=== PATIENT | male | born 1970 | race Caucasian/White ===

== ENCOUNTER → 2019-03-28 | Outpatient (CLI) | payer OTHER ==
[~2019-03-28] MED LIST: AMIT25; BUSP10 PO; CIPR500 PO; CLON1 PO; CYCL10 PO; ESCI10; FROV2.5 PO; HYDACE5; HYDACE5 PO; HYDMOR2 PO; HYDMOR4 PO; IBUP600 PO; IBUP800 PO; INDERAL; KETO10 PO; NAPR220; NAPR500 PO; OXYACE10; OXYACE5T PO; OXYC5; OXYCONTIN; PENVK500 PO; PHENY100ER PO; PROM25 PO; RXOXYACE PO; SUMA25; TAMS.4ER PO; THORAZINE; TRAM50 PO; TRAZ50; [UNRECOGNIZED DRUG - OTHER]; [UNRECOGNIZED DRUG - REMARK]
== END ==
LOC: LAB SHORT 14:23 → LAB EV 14:23
DX: L08.9 Local infection of the skin and subcutaneous tissue, unspecified (principal)
CPT/HCPCS: 87070; 87075; 87077; 87147; 87186; 87205

== ENCOUNTER → 2019-05-09 | Outpatient (CLI) | payer OTHER ==
[2019-05-09 14:36] LABS: Alanine Aminotransfer (ALT/SGP 41 U/L (12-78); Albumin, Blood 3.7 g/dL (3.4-5.0); Albumin/Globulin Ratio 1.1 (0.8-1.8); Alk Phos 106 U/L (40-126); Anion Gap 12 mmol/L (6-16); Aspartate Aminotrans (AST/SGOT 71 U/L (12-37); Bilirubin, Total 0.3 mg/dL (0.1-1.0); Blood Urea Nitrogen 11 mg/dL (8-24); Bun/Creatinine Ratio 8.7 (12.0-20.0); CO2, Blood 23 mmol/L (21-32); Calcium, Blood 8.9 mg/dL (8.5-10.1); Chloride, Blood 107 mmol/L (98-108); Creatinine, Blood 1.26 mg/dL (0.60-1.20); Globulin, Blood 3.3 g/dL (2.2-4.0); Glomerular Filtration Rate >60 (60-); Glucose, Blood 102 mg/dL (70-99); Potassium, Blood 3.9 mmol/L (3.5-5.5); Sodium, Blood 142 mmol/L (136-145); Thyroid Stimulating Hormone 1.402 uIU/mL (0.360-4.800)
== END | disposition home or self-care (01) ==
LOC: LAB SHORT 14:13 → LAB EV 14:13
PROVIDERS: Physician Assistant
DX: E03.9 Hypothyroidism, unspecified (principal)
CPT/HCPCS: 80053; 84443

== ENCOUNTER 2020-01-06 06:01 | Emergency (ER) | payer OTHER ==
[~2020-01-06] VITALS: Ht 172.7 cm; Wt 88.5 kg
[2020-01-06] MEDS ORDERED: NEURONTIN300 MG PO (06:29)
[2020-01-06] MEDS ORDERED: MIRT15 PO (06:29)
[2020-01-06] MEDS ORDERED: Buspirone HCl10 MG PO (06:29)
[2020-01-06] MEDS ORDERED: MIRT30 PO (06:30)
[2020-01-06] MEDS ORDERED: HYDROCODONE-AC1 EAC7 PO (06:30)
[2020-01-06] MEDS ORDERED: ATOR20 PO (06:31)
[2020-01-06] MEDS ORDERED: QUETIAPINE FUM200 M2 PO (06:31)
[2020-01-06] MEDS ORDERED: SYNTHROID100 MC3 PO (06:31)
[2020-01-06] MEDS ORDERED: METOPROLOL SUCC25 MG PO (06:32)
[2020-01-06 06:36] LABS: BASOPHILS ABSOLUTE AUTO 0.12 K/mm3 (0.00-0.23); BASOPHILS PERCENT AUTO 1 % (0-2); EOSINOPHILS ABSOLUTE AUTO 0.36 K/mm3 (0.00-0.68); EOSINOPHILS PERCENT AUTO 2 % (0-6); Hematocrit 38.1 % (37.0-53.0); Hemoglobin 12.4 g/dL (13.5-17.5); IMMATURE GRAN ABSOLUTE AUTO 0.07 K/mm3 (0.00-0.10); IMMATURE GRAN PERCENT AUTO 1 % (0-1); LYMPHOCYTES ABSOLUTE AUTO 2.35 K/mm3 (0.84-5.20); LYMPHOCYTES PERCENT AUTO 16 % (21-46); MONOCYTES ABSOLUTE AUTO 1.57 K/mm3 (0.16-1.47); MONOCYTES PERCENT AUTO 11 % (4-13); Mean Corpuscular HGB 30.3 pg (26.0-34.0); Mean Corpuscular HGB Conc 32.5 g/dL (31.5-36.5); Mean Corpuscular Volume 93 fL (80-100); NEUTROPHILS ABSOLUTE AUTO 10.27 K/mm3 (1.96-9.15); NEUTROPHILS PERCENT AUTO 70 % (41-73); Platelet Count 353 K/mm3 (150-400); RDW Coefficient Variation 14.2 % (11.7-14.2); RDW Standard Deviation 48.3 fL (35.1-46.3); Red Blood Cell Count 4.09 M/mm3 (4.30-5.90); White Blood Cell Count 14.74 K/mm3 (4.00-11.30)
[2020-01-06 06:54] LABS: Alanine Aminotransfer (ALT/SGP 33 U/L (12-78); Albumin, Blood 3.5 g/dL (3.4-5.0); Alk Phos 90 U/L (50-136); Anion Gap 6 mmol/L (6-16); Aspartate Aminotrans (AST/SGOT 27 U/L (12-37); Bilirubin, Total 0.2 mg/dL (0.1-1.0); Blood Urea Nitrogen 8 mg/dL (8-24); Bun/Creatinine Ratio 8.3 (12.0-20.0); CO2, Blood 24 mmol/L (21-32); Calcium, Blood 9.5 mg/dL (8.5-10.1); Chloride, Blood 108 mmol/L (98-108); Creatinine, Blood 0.96 mg/dL (0.60-1.20); Globulin, Blood 3.6 g/dL (2.2-4.0); Glomerular Filtration Rate >60 (60-); Glucose, Blood 117 mg/dL (70-99); Potassium, Blood 4.1 mmol/L (3.5-5.5); Sodium, Blood 138 mmol/L (136-145); Total Protein, Blood 7.1 g/dL (6.4-8.2); Troponin I <0.015 ng/mL (0.000-0.040)
[2020-01-06] MEDS ORDERED: AMOCLA875 PO (09:29)
== END 2020-01-06 09:52 | disposition home or self-care (01) ==
LOC: ER 06:01
PROVIDERS: Emergency Medicine
DX: K52.9 Noninfective gastroenteritis and colitis, unspecified (principal); J18.9 Pneumonia, unspecified organism; F41.9 Anxiety disorder, unspecified; F17.210 Nicotine dependence, cigarettes, uncomplicated; Z88.0 Allergy status to penicillin; Z88.5 Allergy status to narcotic agent; Z79.899 Other long term (current) drug therapy
CPT/HCPCS: 36415; 71046; 74177; 80053; 83690; 83880; 84484; 85025; 93005; 93010; 96374; 99285-25; J2405; Q9967

== ENCOUNTER → 2020-01-20 | Outpatient (CLI) | payer OTHER ==
[~2020-01-20] MED LIST changes: +AMOCLA875 PO; +ATOR20 PO; +Buspirone HCl10 MG PO; +HYDROCODONE-AC1 EAC7 PO; +METOPROLOL SUCC25 MG PO; +MIRT15 PO; +MIRT30 PO; +NEURONTIN300 MG PO; +QUETIAPINE FUM200 M2 PO; +SYNTHROID100 MC3 PO
[2020-01-20 10:03] LABS: BASOPHILS ABSOLUTE AUTO 0.11 K/mm3 (0.00-0.23); BASOPHILS PERCENT AUTO 1 % (0-2); EOSINOPHILS ABSOLUTE AUTO 0.26 K/mm3 (0.00-0.68); EOSINOPHILS PERCENT AUTO 3 % (0-6); Hematocrit 36.3 % (37.0-53.0); Hemoglobin 12.2 g/dL (13.5-17.5); IMMATURE GRAN ABSOLUTE AUTO 0.04 K/mm3 (0.00-0.10); IMMATURE GRAN PERCENT AUTO 0 % (0-1); LYMPHOCYTES ABSOLUTE AUTO 2.35 K/mm3 (0.84-5.20); LYMPHOCYTES PERCENT AUTO 23 % (21-46); MONOCYTES ABSOLUTE AUTO 0.85 K/mm3 (0.16-1.47); MONOCYTES PERCENT AUTO 8 % (4-13); Mean Corpuscular HGB 30.5 pg (26.0-34.0); Mean Corpuscular HGB Conc 33.6 g/dL (31.5-36.5); Mean Corpuscular Volume 91 fL (80-100); Mean Platelet Volume 10.5 fL (9.1-12.4); NEUTROPHILS ABSOLUTE AUTO 6.64 K/mm3 (1.96-9.15); NEUTROPHILS PERCENT AUTO 65 % (41-73); Platelet Count 379 K/mm3 (150-400); RDW Coefficient Variation 14.5 % (11.7-14.2); RDW Standard Deviation 48.2 fL (35.1-46.3); White Blood Cell Count 10.25 K/mm3 (4.00-11.30)
[2020-01-20 10:04] LABS: Anion Gap 9 mmol/L (6-16); Blood Urea Nitrogen 17 mg/dL (8-24); Bun/Creatinine Ratio 16.8 (12.0-20.0); CO2, Blood 25 mmol/L (21-32); Calcium, Blood 9.4 mg/dL (8.5-10.1); Chloride, Blood 104 mmol/L (98-108); Creatinine, Blood 1.01 mg/dL (0.60-1.20); Glomerular Filtration Rate >60 (60-); Glucose, Blood 103 mg/dL (70-99); Potassium, Blood 4.2 mmol/L (3.5-5.5); Sodium, Blood 138 mmol/L (136-145)
== END | disposition home or self-care (01) ==
LOC: LAB SHORT 09:54 → LAB EV 09:54
PROVIDERS: Family Medicine
DX: R07.9 Chest pain, unspecified (principal)
CPT/HCPCS: 80048; 84484; 85025; 85379

== ENCOUNTER 2020-03-06 03:40 | Emergency (ER) | payer OTHER ==
[~2020-03-06] VITALS: Ht 172.7 cm; Wt 97.5 kg
== END 2020-03-06 05:27 | disposition home or self-care (01) ==
LOC: ER 03:40
DX: M54.5 Low back pain (principal); G89.29 Other chronic pain; F41.9 Anxiety disorder, unspecified; F17.210 Nicotine dependence, cigarettes, uncomplicated; Z79.899 Other long term (current) drug therapy; Z87.442 Personal history of urinary calculi; Z88.0 Allergy status to penicillin; Z88.5 Allergy status to narcotic agent
CPT/HCPCS: 96372; 99283-25; J1885

== ENCOUNTER 2020-04-20 23:29 | Emergency (ER) | payer OTHER ==
[~2020-04-20] VITALS: Ht 175.3 cm; Wt 113.4 kg
[~2020-04-20 23:29] MED LIST changes: -Buspirone HCl10 MG PO
[2020-04-21] MEDS ORDERED: QUET200 PO (00:06)
[2020-04-21] MEDS ORDERED: TRAM50 PO (00:07)
[2020-04-21] MEDS ORDERED: Vitamin D2000 UNIT PO (00:07)
[2020-04-21] MEDS ORDERED: B-121000 MC7 PO (00:08)
== END 2020-04-21 01:50 | disposition home or self-care (01) ==
LOC: ER 23:29
DX: R06.02 Shortness of breath (principal); F17.210 Nicotine dependence, cigarettes, uncomplicated; Z88.0 Allergy status to penicillin; Z87.442 Personal history of urinary calculi; Z79.899 Other long term (current) drug therapy
CPT/HCPCS: 36415; 71046; 93005; 93010; 99285-25; A9270

== ENCOUNTER → 2020-07-19 | Outpatient (CLI) | payer OTHER ==
[~2020-07-19] MED LIST changes: +B-121000 MC7 PO; +QUET200 PO; +Vitamin D2000 UNIT PO
[2020-07-19 16:08] LABS: CHOL/HDL RATIO 4.3; Cholesterol 194 mg/dL (50-200); HDL Cholesterol 45 mg/dL (>39); LDL/HDL RATIO 2.4; Low Density Lipoprotein Chol 110 mg/dL (<110); Triglycerides 196 mg/dL (30-160); Very Low Density Lipoprot Chol 39 mg/dL (6-32)
[2020-07-20 07:10] LABS: HIV SCREEN 4TH GENERATION WRFX Non Reactive (Non Reactive)
== END | disposition home or self-care (01) ==
LOC: LAB SHORT 15:53
PROVIDERS: Family Medicine
DX: Z20.9 Contact with and (suspected) exposure to unspecified communicable disease (principal); Z77.21 Contact with and (suspected) exposure to potentially hazardous body fluids; G40.909 Epilepsy, unspecified, not intractable, without status epilepticus; E78.5 Hyperlipidemia, unspecified
CPT/HCPCS: 80061; 80177; 86803; 87389

== ENCOUNTER 2020-07-31 03:14 | Inpatient (IN) | payer OTHER ==
[~2020-07-31] VITALS: Ht 167.6 cm; Wt 102.1 kg
[2020-07-31 03:30] LABS: Calcium, Ionized (POC) 1.26 mmol/L (1.10-1.46); Chloride (POC) 102 mmol/L (98-108); Creatinine (POC) 0.9 mg/dL (0.8-1.3); Glucose (ISTAT POC) 135 mg/dL (70-99); Hemoglobin (POC) 11.9 g/dL (13.5-17.5); Potassium (POC) 3.8 mmol/L (3.5-5.5); Sodium (POC) 138 mmol/L (135-148); Total CO2 (POC) 23 mmol/L (21-32)
[2020-07-31 03:32] LABS: BASOPHILS ABSOLUTE AUTO 0.05 K/mm3 (0.00-0.23); BASOPHILS PERCENT AUTO 0 % (0-2); Hematocrit 35.3 % (37.0-53.0); Hemoglobin 11.3 g/dL (13.5-17.5); LYMPHOCYTES ABSOLUTE AUTO 1.02 K/mm3 (0.84-5.20); LYMPHOCYTES PERCENT AUTO 9 % (21-46); MONOCYTES ABSOLUTE AUTO 1.02 K/mm3 (0.16-1.47); MONOCYTES PERCENT AUTO 9 % (4-13); Mean Corpuscular HGB 29.9 pg (26.0-34.0); Mean Corpuscular Volume 93 fL (80-100); Mean Platelet Volume 10.6 fL (9.1-12.4); Platelet Count 250 K/mm3 (150-400); RDW Coefficient Variation 14.7 % (11.7-14.2); RDW Standard Deviation 50.4 fL (35.1-46.3); Red Blood Cell Count 3.78 M/mm3 (4.30-5.90)
[2020-07-31 03:34] LABS: EOSINOPHILS ABSOLUTE AUTO 0.12 K/mm3 (0.00-0.68); EOSINOPHILS PERCENT AUTO 1 % (0-6); IMMATURE GRAN ABSOLUTE AUTO 0.03 K/mm3 (0.00-0.10); IMMATURE GRAN PERCENT AUTO 0 % (0-1); NEUTROPHILS ABSOLUTE AUTO 9.56 K/mm3 (1.96-9.15); NEUTROPHILS PERCENT AUTO 81 % (41-73)
[2020-07-31 03:37] LABS: PCO2 Arterial 38.6 mmHg (35-45); PO2 Arterial 86.5 mmHg (80-100); pH Blood Arterial 7.39 (7.35-7.45)
[2020-07-31 03:57] LABS: Alanine Aminotransfer (ALT/SGP 24 U/L (12-78); Albumin, Blood 3.3 g/dL (3.4-5.0); Albumin/Globulin Ratio 0.9 (0.8-1.8); Alk Phos 61 U/L (50-136); Anion Gap 7 mmol/L (6-16); Aspartate Aminotrans (AST/SGOT 14 U/L (12-37); Bilirubin, Total 0.3 mg/dL (0.1-1.0); Blood Urea Nitrogen 16 mg/dL (8-24); Bun/Creatinine Ratio 17.2 (12.0-20.0); CO2, Blood 24 mmol/L (21-32); Calcium, Blood 8.9 mg/dL (8.5-10.1); Chloride, Blood 107 mmol/L (98-108); Creatinine, Blood 0.93 mg/dL (0.60-1.20); Ethanol (Alcohol), Blood, Med <3 mg/dL; Globulin, Blood 3.8 g/dL (2.2-4.0); Glomerular Filtration Rate >60 (60-); Glucose, Blood 132 mg/dL (70-99); Potassium, Blood 3.7 mmol/L (3.5-5.5); Sodium, Blood 138 mmol/L (136-145); Total Protein, Blood 7.1 g/dL (6.4-8.2); Troponin I <0.015 ng/mL (0.000-0.040)
[2020-07-31 04:10] LABS: U Amphetamine Screen Not Detected; U Barbituate Screen Not Detected; U Benzodiazapine Screen Not Detected; U Buprenorphine Screen Not Detected; U Cannabinoids Screen Not Detected; U Cocaine Screen Not Detected; U Methadone Screen Not Detected; U Methamphetamine Screen Not Detected; U Opiates Screen Not Detected; U Oxycodone Screen Not Detected; U Phencyclidine Screen Not Detected; U Propoxyphene Screen Not Detected
--- NOTE | 2020-07-31 06:32 | NUR ---
ADMISSION PATIENT ARRIVED TO UNIT AT 0623 VIA GURNEY FROM ED. 4 PERSON TRANSFER TO BED. PATIENT AWAKENS TO PHYSICAL AND VERBAL STIMULI. DOES NOT ANSWER QUESTIONS, QUICKLY CLOSES EYES WHEN NO DISTURBANCES PRESENT. 10L NON-REBREATHER IN PLACE WITH SATS 100%, PLACED 5L NC WITH SATS AT 93%. VITALS STABLE, SINUS RHYTHM NOTED. UNABLE TO ASK ADMISSION QUESTIONS AT THIS TIME DUE TO PATIENT'S LETHARGY. WILL REPORT TO ONCOMING RN.
--- NOTE | 2020-07-31 09:26 | NUR ---
AM NOTE... ASSUMED CARE OF PT AT 0700. PT WAKES TO VERBAL STIMULI AND IS A&Ox2 ABLE TO STATE HIS NAME AND THAT HE IS IN [place] BUT CONFUSED TO WHERE HE IS AT AND WHY HE IS HERE. PT IS IN [place], PT HAS TRACE EDEMA TO HIS BLE. L/S COARSE CRACKLES HEARD IN THE UPPER LOBES DIM IN THE LOWER LOBES, PT IS ON 5L NC WITH O2 SATS >90%. BT PRESENT AND HYPOACTIVE, ABD IS SLIGHTLY FIRM BUT NONTENDER TO PALP. PT'S BP IS ON THE SOFT SIDE BUT MAPS HAVE BEEN >65. CALL LIGHT IN REACH, BED ALARM IS ON WILL CONTINUE TO MONITOR.
[2020-07-31] MEDS ORDERED: Norco 5-325 Ta1 EACH PO (11:58)
[2020-07-31] MEDS ORDERED: ATOR40TA PO (12:00)
[2020-07-31] MEDS ORDERED: LEVE500 PO (12:13)
--- NOTE | 2020-07-31 13:16 | NUR ---
PT UPDATE... PT HAD REQUESTED TO GET UP TO THE BS TO HAVE A BM, PT DID WELL STANDING AND TRANSFERING TO THE BSC, NO DIZZINESS AND PT WAS STABLE ON HIS FEET, HE DID BECOME MORE SHORT OF BREATH WITH ACTIVITY. PT WAS TOLD NOT TO GET UP WITHOUT ASSISTANCE FROM STAFF D/T THE IV LINES, CORDS ETC. PT VERBALIZED HIS UNDERSTANDING BUT SOON THE CURTAIN WAS CLOSED AND HE TOUGHT STAFF WERE NOT LOOKING HE GOT UP, WENT TO HIS PANTS THAT WERE IN A CHAIR ACROSS THE ROOM, SOON THIS RN SAW THE PT WAS STANDING UP WITHOUT HELP I WENT INTO THE ROOM, I ENTERED THE ROOM THE PT PULLED 3 SMALL OBLONG WHITE PILLS OUT OF HIS POCKET, THREW THEM IN HIS MOUTH AND STARTED TO CHEW THEM UP. THIS RN ASKED WHAT THE PT HAD JUST TAKEN AND HE SAID "TYLENOL." THIS RN EDUCATED THE PT ON THE IMPORTANCE OF NOT TAKING ANY PERSONAL MEDICATIONS, POSSIBLE MEDICATION INTERACTIONS THAT COULD CAUSE MANY SIDE EFFECTS INCLUDING . PT VERBALIZED HIS UNDERSTANDING BUT THEN SAID "I TAKE PAIN PILLS AT HOME, NORCO AND TRAMADOL." THIS RN ASKED IF THAT IS WHAT HE HAD IN HIS POCKET AND HE PAUSED AND SAID "NO I JUST CHEW MY TYLENOL." PT THEN STARTED TO BECOME ANXIOUS AND STARTED TALKING ABOUT LEAVING AMA. THIS RN EDUCATED THE PT ON HIS RIGHT TO LEAVE BUT THAT HE CURRENTLY WAS NEEDING 2-4L OF OXYGEN TO KEEP HIS O2 SATS >89%, AND THAT HE BECOMES SOB WITH ACTIVITY, AND THAT HE WOULD NOT GET THE ANTIBIOTICS NEEDED FOR HIS CURRENT PNEUMONIA. PT VERBALIZED HIS UNDERSTANDING. PT WENT TO CT SCAN WITH IMAGING STAFF AND RETURNED A FEW MINS LATER, ATE 100% OF HIS LUNCH AND FELL ASLEEP. WILL CONTINUE TO MONITOR.
[2020-07-31] MEDS ORDERED: SYMBICORT 160-4.6 GM INH (14:24)
--- NOTE | 2020-07-31 16:37 | NUR ---
SHIFT SUMMARY... NO ACUTE NEGATIVE CHANGES NOTED THIS SHIFT. PT'S VS HAVE BEEN STABLE. PT HAS BEEN TITRATED FROM 5L NC DOWN TO RA-2L NC TO KEEP HIS O2 SATS>90%. PT'S MOTHER HAS BEEN AT THE BEDSIDE FOR VISITING HOURS. SHE HAS BEEN UPDATED ON PT'S PLAN OF CARE AND CONDITION. PT IS TO TRANSFER TO THE MEDICAL FLOOR, ALL OF PT'S BELONGINGS HAVE BEEN PACKED AND SENT WITH THE PT. REPORT CALLED TO CHRISSY HOFFMANN. WILL CONTINUE TO MONITOR UNTIL THE PT IS TRANSFERED TO MEDICAL FLOOR.
--- NOTE | 2020-07-31 18:09 | NUR ---
Pt arrived to room 336. Agree with previous pickling grader. Pt on 2L O2 via NC. Appears comfortable at this time. Call light within patient reach.
[2020-08-01 05:25] LABS: BASOPHILS ABSOLUTE AUTO 0.04 K/mm3 (0.00-0.23); BASOPHILS PERCENT AUTO 1 % (0-2); EOSINOPHILS ABSOLUTE AUTO 0.34 K/mm3 (0.00-0.68); EOSINOPHILS PERCENT AUTO 5 % (0-6); Hematocrit 33.4 % (37.0-53.0); Hemoglobin 10.6 g/dL (13.5-17.5); IMMATURE GRAN ABSOLUTE AUTO 0.03 K/mm3 (0.00-0.10); IMMATURE GRAN PERCENT AUTO 0 % (0-1); LYMPHOCYTES ABSOLUTE AUTO 1.95 K/mm3 (0.84-5.20); LYMPHOCYTES PERCENT AUTO 28 % (21-46); MONOCYTES ABSOLUTE AUTO 0.71 K/mm3 (0.16-1.47); MONOCYTES PERCENT AUTO 10 % (4-13); Mean Corpuscular HGB 29.9 pg (26.0-34.0); Mean Corpuscular HGB Conc 31.7 g/dL (31.5-36.5); Mean Corpuscular Volume 94 fL (80-100); Mean Platelet Volume 10.8 fL (9.1-12.4); NEUTROPHILS PERCENT AUTO 55 % (41-73); Platelet Count 250 K/mm3 (150-400); RDW Coefficient Variation 14.7 % (11.7-14.2); RDW Standard Deviation 51.6 fL (35.1-46.3); Red Blood Cell Count 3.55 M/mm3 (4.30-5.90); White Blood Cell Count 6.87 K/mm3 (4.00-11.30)
[2020-08-01 05:45] LABS: Alanine Aminotransfer (ALT/SGP 21 U/L (12-78); Albumin, Blood 2.9 g/dL (3.4-5.0); Albumin/Globulin Ratio 0.8 (0.8-1.8); Alk Phos 58 U/L (50-136); Anion Gap 4 mmol/L (6-16); Aspartate Aminotrans (AST/SGOT 11 U/L (12-37); Bilirubin, Total 0.3 mg/dL (0.1-1.0); Blood Urea Nitrogen 13 mg/dL (8-24); Bun/Creatinine Ratio 14.3 (12.0-20.0); CO2, Blood 27 mmol/L (21-32); Calcium, Blood 8.7 mg/dL (8.5-10.1); Chloride, Blood 112 mmol/L (98-108); Creatinine, Blood 0.91 mg/dL (0.60-1.20); Globulin, Blood 3.8 g/dL (2.2-4.0); Glomerular Filtration Rate >60 (60-); Glucose, Blood 103 mg/dL (70-99); Magnesium, Blood 2.5 mg/dL (1.6-2.4); Phosphorus, Blood 2.9 mg/dL (2.5-4.9); Potassium, Blood 4.1 mmol/L (3.5-5.5); Sodium, Blood 143 mmol/L (136-145); Total Protein, Blood 6.7 g/dL (6.4-8.2)
--- NOTE | 2020-08-01 05:52 | NUR ---
SHIFT SUMMARY- PT. HAD A RESTFUL NIGHT. ASLEEP MOST OF THE NIGHT, NO APPARENT DISTRESS NOTED. A&OX4, SBA/INDEP IN ROOM. MEDICATED THIS AM FOR COMPLAINTS OF LOWER BACK PAIN WITH GOOD EFFECT. PT. ON RA T/O THE NIGHT, PULMONOLOGY CONSULT IN PLACE. VSS. CALL LIGHT WITHIN REACH AND SIDE RAILS UPX2. WILL CONT TO MONITOR.
[2020-08-01] MEDS ORDERED: VISBIOME 112.51 EACH PO (09:38)
[2020-08-01] MEDS ORDERED: ALBU90OI INH (09:38)
[2020-08-01] MEDS ORDERED: NICO21TP TOP (09:38)
[2020-08-01] MEDS ORDERED: CEFP200 PO (09:39)
[2020-08-01] MEDS ORDERED: AZIT500 PO (09:39)
[2020-08-01] MEDS ORDERED: Prednisone10 MG PO (09:41)
--- NOTE | 2020-08-01 11:07 | NUR ---
DISCHARGE DISCAHRGE MEDICATIONS AND INSTRUCTIONS EXPLAINED TO PATIENT. PATIENT STATED UNDERSTANDING. [facility] TO CONTACT PATIENT WITH FOLLOW UP APPOINTMENT. IV'S REMOVED WITHOUT ISSUE. BELONGINGS WITH PATIENT. PATIENT TRANSFERED TO PRIVATE VEHICLE VIA WHEELCHAIR.
--- NOTE | 2020-08-01 13:35 | NUR ---
Pt. is doing much better and is discharged for good , wished pt. all the best while at home.
--- NOTE | 2020-08-01 17:06 | NUR ---
CARE COORDINATION REFERRAL - ADMIT: 07/31/20 DISCHARGE: 08/01/20 DX: ACUTE RESP. FAILURE WITH HYPOXIA CC: KWILCOX ADRIAN CALL: UNABLE TO MEET WITH PT BEFORE D/C RESIDENCE: HOME CAREGIVER:VIDA VASQUES, PARENT, DX: CKD-STAGE 2, HTN, CHRONIC PAIN SYNDROME, SEVERE MAJOR DEPRESSION WITH PSYCHOTIC FEATURES. GERD, SEE LIST DME: BLOOD PRESSURE MONITOR KIT CCM: NONE HOME HEALTH: NONE SUMMARY: ADMIT: 07/31/20 08/01/20- PER CHART REVIEW WITH DR. DEJESUS, PT WAS BROUGHT IN BY EMS AND TEMP 103. PT WAS NOT RESPONDING APPROPRIATELY. PT HAS NEW DIAGNOSIS OF PULMONARY NODULE. HE HAS ALTERED MENTAL STATUS AND HIS COVID TEST NEGATIVE. PT WAS DISCHARGED HOME TODAY. -YISSEL
== END 2020-08-01 10:55 | disposition home or self-care (01) | DRG 193 ==
LOC: ER 03:14 → MEDS 05:41 → ICUW 05:41 → MEDS 17:24
PROVIDERS: Emergency Medicine; Hospitalist; ADMIT Family Medicine
DX: J18.9 Pneumonia, unspecified organism (principal); A41.9 Sepsis, unspecified organism; J96.01 Acute respiratory failure with hypoxia; G93.41 Metabolic encephalopathy; R65.20 Severe sepsis without septic shock; Z20.822 Contact with and (suspected) exposure to COVID-19; G40.909 Epilepsy, unspecified, not intractable, without status epilepticus; E78.5 Hyperlipidemia, unspecified; J43.9 Emphysema, unspecified; F17.210 Nicotine dependence, cigarettes, uncomplicated; G89.4 Chronic pain syndrome; F41.9 Anxiety disorder, unspecified; Z88.0 Allergy status to penicillin; Z87.442 Personal history of urinary calculi; Z79.899 Other long term (current) drug therapy
CPT/HCPCS: 36415; 36600; 51701; 70450; 71045; 71260; 80047; 80053; 80177; 82140; 82803; 83605; 83735; 83880; 84100; 84145; 84484; 85014; 85025; 87040; 87070; 87205; 93005; 93010; 94640; 94760; 96365-59; 96368; 96375-59; 99285-25; A9270; A9270-GY; G0480; J0456; J0696; J1650; J1953; J2060; J2405; J7030; J7050; J7120; Q9967

== ENCOUNTER 2020-08-21 04:20 | Emergency (ER) | payer OTHER ==
[~2020-08-21] VITALS: Ht 172.7 cm; Wt 99.8 kg
[~2020-08-21 04:20] MED LIST changes: +ALBU90OI INH; +ATOR40TA PO; +AZIT500 PO; +CEFP200 PO; +LEVE500 PO; +NICO21TP TOP; +Norco 5-325 Ta1 EACH PO; +Prednisone10 MG PO; +SYMBICORT 160-4.6 GM INH; +VISBIOME 112.51 EACH PO
[2020-08-21 05:47] LABS: BASOPHILS ABSOLUTE AUTO 0.09 K/mm3 (0.00-0.23); BASOPHILS PERCENT AUTO 1 % (0-2); EOSINOPHILS PERCENT AUTO 2 % (0-6); Hematocrit 40.3 % (37.0-53.0); Hemoglobin 12.9 g/dL (13.5-17.5); IMMATURE GRAN ABSOLUTE AUTO 0.06 K/mm3 (0.00-0.10); IMMATURE GRAN PERCENT AUTO 0 % (0-1); LYMPHOCYTES ABSOLUTE AUTO 2.69 K/mm3 (0.84-5.20); LYMPHOCYTES PERCENT AUTO 19 % (21-46); MONOCYTES ABSOLUTE AUTO 1.52 K/mm3 (0.16-1.47); MONOCYTES PERCENT AUTO 11 % (4-13); Mean Corpuscular HGB 30.1 pg (26.0-34.0); Mean Corpuscular Volume 94 fL (80-100); NEUTROPHILS ABSOLUTE AUTO 9.74 K/mm3 (1.96-9.15); NEUTROPHILS PERCENT AUTO 68 % (41-73); Platelet Count 330 K/mm3 (150-400); RDW Coefficient Variation 15.3 % (11.7-14.2); RDW Standard Deviation 53.1 fL (35.1-46.3); Red Blood Cell Count 4.28 M/mm3 (4.30-5.90)
[2020-08-21 05:59] LABS: Alanine Aminotransfer (ALT/SGP 23 U/L (12-78); Albumin, Blood 3.5 g/dL (3.4-5.0); Albumin/Globulin Ratio 0.9 (0.8-1.8); Alk Phos 74 U/L (50-136); Anion Gap 7 mmol/L (6-16); Aspartate Aminotrans (AST/SGOT 16 U/L (12-37); Bilirubin, Total 0.2 mg/dL (0.1-1.0); Blood Urea Nitrogen 17 mg/dL (8-24); Bun/Creatinine Ratio 18.8 (12.0-20.0); CO2, Blood 23 mmol/L (21-32); Chloride, Blood 111 mmol/L (98-108); Creatinine, Blood 0.91 mg/dL (0.60-1.20); Globulin, Blood 3.7 g/dL (2.2-4.0); Glomerular Filtration Rate >60 (60-); Glucose, Blood 75 mg/dL (70-99); Potassium, Blood 4.7 mmol/L (3.5-5.5); Sodium, Blood 141 mmol/L (136-145); Total Protein, Blood 7.2 g/dL (6.4-8.2); Troponin I <0.015 ng/mL (0.000-0.040)
[2020-08-21] MEDS ORDERED: PRED20 PO (08:58)
== END 2020-08-21 09:13 | disposition home or self-care (01) ==
LOC: ER 04:20
PROVIDERS: Emergency Medicine
DX: J43.9 Emphysema, unspecified (principal); Z79.51 Long term (current) use of inhaled steroids; Z79.52 Long term (current) use of systemic steroids; Z79.899 Other long term (current) drug therapy
CPT/HCPCS: 36415; 71045; 71260; 80053; 83605; 83880; 84484; 85025; 93005; 93010; 99285-25; Q9967

== ENCOUNTER → 2020-09-04 | Outpatient (CLI) | payer OTHER ==
[~2020-09-04] MED LIST changes: +PRED20 PO; +Prednisone20 MG PO; +Zithromax250 MG PO
[2020-09-05 08:09] LABS: HIV SCREEN 4TH GENERATION WRFX Non Reactive (Non Reactive)
== END ==
LOC: LAB EV 13:51 → LAB SHORT 13:51
PROVIDERS: Family Medicine
DX: Z20.9 Contact with and (suspected) exposure to unspecified communicable disease (principal)
CPT/HCPCS: 87389

== ENCOUNTER 2020-09-05 02:31 | Inpatient (IN) | payer OTHER ==
[~2020-09-05] VITALS: Ht 172.7 cm; Wt 99.2 kg
[~2020-09-05 02:31] MED LIST changes: -Prednisone20 MG PO; -Zithromax250 MG PO
[2020-09-05 02:57] LABS: BASOPHILS ABSOLUTE AUTO 0.05 K/mm3 (0.00-0.23); BASOPHILS PERCENT AUTO 1 % (0-2); EOSINOPHILS PERCENT AUTO 2 % (0-6); Hematocrit 45.2 % (37.0-53.0); Hemoglobin 14.8 g/dL (13.5-17.5); IMMATURE GRAN ABSOLUTE AUTO 0.03 K/mm3 (0.00-0.10); IMMATURE GRAN PERCENT AUTO 0 % (0-1); LYMPHOCYTES ABSOLUTE AUTO 2.16 K/mm3 (0.84-5.20); LYMPHOCYTES PERCENT AUTO 21 % (21-46); MONOCYTES ABSOLUTE AUTO 0.34 K/mm3 (0.16-1.47); MONOCYTES PERCENT AUTO 3 % (4-13); Mean Corpuscular HGB Conc 32.7 g/dL (31.5-36.5); Mean Corpuscular Volume 92 fL (80-100); Mean Platelet Volume 9.6 fL (9.1-12.4); NEUTROPHILS ABSOLUTE AUTO 7.32 K/mm3 (1.96-9.15); NEUTROPHILS PERCENT AUTO 72 % (41-73); Platelet Count 432 K/mm3 (150-400); RDW Standard Deviation 50.4 fL (35.1-46.3); Red Blood Cell Count 4.93 M/mm3 (4.30-5.90)
[2020-09-05 03:18] LABS: Alanine Aminotransfer (ALT/SGP 26 U/L (12-78); Alk Phos 89 U/L (50-136); Anion Gap 2 mmol/L (6-16); Aspartate Aminotrans (AST/SGOT 20 U/L (12-37); Bilirubin, Total 0.1 mg/dL (0.1-1.0); Blood Urea Nitrogen 15 mg/dL (8-24); CO2, Blood 29 mmol/L (21-32); Calcium, Blood 9.1 mg/dL (8.5-10.1); Chloride, Blood 106 mmol/L (98-108); Creatinine, Blood 1.07 mg/dL (0.60-1.20); Glomerular Filtration Rate >60 (60-); Glucose, Blood 116 mg/dL (70-99); Potassium, Blood 3.9 mmol/L (3.5-5.5); Sodium, Blood 137 mmol/L (136-145); Troponin I <0.015 ng/mL (0.000-0.040)
--- NOTE | 2020-09-05 05:55 | NUR ---
ADMISSION: PT ARRIVES AN ADMIT FROM THE ED. REPORTS WORSENING SOB LAST NIGHT, WHEN ABOUT TO LEAVE FOR WORK @ [employer], HE BEGAN TO FEEL LIGHTHEADED & WAS UNABLE TO STAND. HE HAD x3 EPISODES OF EMESIS & HIS DAUGHTER DROVE HIM TO THE ER. UPON ARRIVAL, HR 150s, TACHYPNEIC & HYPOXIC. HE RECEIVED A NEB, ATIVAN, & PLACED ON BiPAP. HE IMPROVED SOMEWHAT PER ER REPORT. UPON ARRIVAL PT IS VERY DROWSY, DIFFICULTY SPEAKING W/ SLURRED & GARBLED SPEECH. CONFUSED. UNABLE TO PARTICIPATE IN ASSESSMENTS. THERE IS EMESIS IN HIS NOSE, MOUTH, & ON HIS HANDS. PT IS TOLERATING BiPAP VERY WELL, 14/8 FiO2 50% & SPO2 >95%. PT APPEARS DIAPHORETIC. SKIN PINK, HOT, MOIST. AFEBRILE.
--- NOTE | 2020-09-05 06:15 | NUR ---
UPDATE: PT's DAUGHTER CALLED FROM ICU LOUNGE TO PT ROOM TO ASSIST IN HEALTH Hx. SHE EXPLAINS HER FATHER HAS HAD COPD FOR SOME TIME, HOWEVER HE HAS NEVER BEEN THIS ILL. OVER THE PAST 5 MONTHS, HIS COPD HAS WORSENED SIGNIFICANTLY. HE HAS BEEN SEEN IN THE ER SEVERAL TIMES & ADMITTED TO THE HOSPITAL WHERE HE QUICKLY LEFT AMA. INTERACTIONS APPROPRIATE AND AMICABLE. DAUGHTER WAS LEAVING, PT BECAME VERY AGITATED, PULLING OFF VS EQUIPMENT & PULLING @ BiPAP. STATING IF HIS DAUGHTER WAS NOT ALLOWED TO STAY AT ALL TIMES, HE WAS GOING HOME. VISITING HOUR PARAMETERS EXPLAINED TO BOTH PARTIES, INCLUDING THE OPTION & RISKS vs BENEFITS OF OF LEAVING AMA DAUGHTER WILL STAY FOR NOW TO KEEP THE PT CALM, HOWEVER FURTHER PLAN OF CARE WILL BE DISCUSSED W/ DAY TIME RN & PROVIDER.
--- NOTE | 2020-09-05 08:00 | NUR ---
CARE ASSUMED PT IN BED WITH HOB ELEVATED, BIPAP IN PLACE, 25/11, FIO2 40%, SPO2 >95%, RR 25, COLOR IS ASHEN DESPITE ADEQUATE OXEGENATION. HR 100-110 SIT, BP STABLE. PT SLEEPING, NOT WOKEN AT THIS TIME PT HAS BEEN AWAKE AND AGITATED T/O NIGHT. WILL CONTINUE TO MONITOR.
--- NOTE | 2020-09-05 10:41 | NUR ---
UPDATE PT WOKE, ASSESSMENTS COMPLETED. BIPAP REMOVED FOR BREAK, PT ON OXYMIZER 10L WITH SPO2 96%, LOOSE COUGH NOTED, PT REPORTS BROWN SPUTUM PRODUCTION. LS DIMINISHED WITH EXPIRATORY WHEEZES ON L, RR 20'S, SKIN SALLOW. HR 90'S-110 SINUS, BP STABLE, NO EDEMA NOTED, PPP. PT GIVEN ZOFRAN FOR MILD NAUSEA, TOLERATED MEDICATIONS WELL, GIVEN BREAKFAST. AFTER PT FINISHED BREAKFAST, HE REQUESTED BIPAP BE REPLACED FOR SOB, DENIES NAUSEA AT THIS TIME. PT DIAPHORETIC, STATES HE IS HOT. BIPAP PLACED AT PREVIOUS SETTINGS, FAN GIVEN. HR 105, SPO2 REMAINS HIGH 90'S.
--- NOTE | 2020-09-05 14:59 | NUR ---
TRANSFER PCU RM [address] DR[address] FRANCISCO IN FOR CONSULT, ECHO ORDERED. PT HAS BEEN SLEEPING ON AND OFF TODAY, VS REMAIN STABLE. PT WOKE UP FOR LUNCH, BIPAP OFF, PUT ONOXYMIZER 4L, TOLERATED WELL, NO C/O NAUSEA AND NO DESATURATIONS, WHEN PT FINISHED HE ASKED TO STAY ON OXYMIZER. PT THEN FELL ASLEEP, DESATURATED TO MID 80'S, LS WHEEZY. BIPAP PLACED WITH PREVIOUS SETTINGS, SPO2 RECOVERED TO MID 90'S. DAUGHTER ARRIVED FOR VISITING HOURS, DR. FRANCISCO AT BEDSIDE TO GIVE UPDATE. REPORT GIVEN TO PCU NURSE, PT TO PCU 1 VIA BED WITH STAFF ASSIST, BELONGINGS AND CHART SENT WITH PATIENT.
--- NOTE | 2020-09-05 15:06 | NUR ---
CARE COORDINATION REFERRAL - ADMIT: 09/05/20 DISCHARGE: DX: ACUTE RESPIRATORY FAILURE CC: KWILCOX ADRIAN CALL: RESIDENCE: HOME CAREGIVER:VIDA VASQUES, PARENT, DX: CKD-STAGE 2, HTN, GERD, TRAUMATIC BRAIN INJURY, SEE LIST DME: BLOOD PRESSURE KIT CCM: NONE HOME HEALTH: NONE SUMMARY: 09/05/20 09/05/20- PER CHART REVIEW WITH DR. CHERRY, PT LIVES WITH HIS DAUGHTER AND WORKS IN [place]. PT WILL NEED O2 FOR HOME USE AT DISCHARGE. NO PLAN FOR D/C AT THIS TIME. -YISSEL
[2020-09-05 15:38] LABS: Source, Urine Clean Catch
[2020-09-05 15:44] LABS: Appearance, Urine Clear (Clear); Bilirubin, Urine Neg (Neg); Blood, Urine 3+ (Neg); Color, Urine Yellow (P-Yellow); Glucose Qualitative, Urine Neg (Neg); Ketones, Urine 1+ (Neg); Leukocyte Esterase, Urine Neg (Neg); Nitrite, Urine Neg (Neg); Protein, Urine 1+ (Neg); Urobilinogen, Urine NORM (Normal)
[2020-09-05 16:03] LABS: Bacteria Few /hpf; Squamous Epithelial Cells Few /hpf (Few); White Blood Cells, Urine 0-2 /hpf (0-5)
--- NOTE | 2020-09-05 18:02 | NUR ---
PATIENT ARRIVED FROM ICU ON 5 L VIA NASAL CANNULA. PATIENT APPEARS IRRITABLE, STATES THAT HE HAS TO GO TO THE BATHROOM, HE DOES NOT WANT TO USE THE URINAL, STATES HE IS "GOING TO THE GROWN UP BATHROOM OR I'M LEAVING." PATIENT AGREES TO ECHO AT BEDSIDE, ECHO COMPLETE. PATIENT PLACED BACK ON BIPAP BY MARYA HOFFMANN BECAUSE HE STATES HE FEELS HE IS NOT GETTING ENOUGH AIR. PATIENT CALLS THIS RN INTO ROOM, STATES HE IS NOT GETTING HIS MEDS HE SHOULD BE GETTING, INSISTS THAT HE NEEDS TRAMADOL D/T HIS 8/10 BACK AND NECK PAIN. PATIENT STATES HE IS LEAVING AND STARTED TO PULL OUT ONE OF HIS IVs. THIS RN STATED THAT THE DOCTOR WOULD BE CALLED TO DISCUSS BETTER PAIN MANAGEMENT IF THE PATIENT AGREED TO WAIT. DR. CHERRY NOTIFIED, DR. CHERRY AND INFORMED OF PATIENT'S DESIRE TO LEAVE AMA AND PATIENT'S DESIRE FOR IMPROVED PAIN CONTROL. DR. CHERRY GAVE ORDERS FOR INCREASING NORCO FROM DAILY TO Q6. THIS RN PROVIDED THIS INFORMATION TO PATIENT WHO AGREED TO STAY. THIS RN RETURNED TO ROOM WITH NORCO, PATIENT ASKED IF IT WAS A NORCO 5, THIS RN CONFIRMED THAT IT WAS. PATIENT STATED HE WAS "DONE AND LEAVING." PATIENT PROCEEDED TO REMOVE ONE IV. THIS RN DISCUSSED WITH PATIENT THAT HE HAS HIGH OXYGEN NEEDS AT THIS TIME, THIS RN DISCUSSED THE RISK OF LEAVING AND EXPERIENCING HYPOXIA, SEIZURE, AND POSSIBLE A RESULT OF STOPPING MEDICAL TREATMENT BY LEAVING AGAINST MEDICAL ADVICE. PATIENT VERBALIZED THAT HE "DIDN'T CARE" AND SIGNED AMA PAPERWORK. THIS RN REMOVED REMAINING IV. THIS RN ESCORTED PATIENT WITH PATIENT'S DAUGHTER TO THE EXIT, DAUGHTER TO PROVIDE RIDE VIA PERSONAL VEHICLE.
[2020-09-06 08:11] LABS: HBSAG SCREEN Negative (Negative); HEP B CORE AB, TOT Negative (Negative); HEP C VIRUS AB <0.1 (0.0-0.9)
== END 2020-09-05 18:15 | disposition left against medical advice (07) | DRG 871 ==
LOC: ER 02:31 → ICUE 04:06 → PCU 04:06 → ICUE 05:02 → PCU 14:53
PROVIDERS: Emergency Medicine; Internal Medicine; ADMIT Internal Medicine
PROC: 5A09357 Assistance with Respiratory Ventilation, Less than 24 Consecutive Hours, Continuous Positive Airway Pressure (ICD-10-PCS; principal; 2020-09-05)
DX: A41.9 Sepsis, unspecified organism (principal); J18.9 Pneumonia, unspecified organism; J96.02 Acute respiratory failure with hypercapnia; J96.01 Acute respiratory failure with hypoxia; R65.20 Severe sepsis without septic shock; G40.909 Epilepsy, unspecified, not intractable, without status epilepticus; J43.9 Emphysema, unspecified; I10 Essential (primary) hypertension; Z91.14 Patient's other noncompliance with medication regimen; E03.9 Hypothyroidism, unspecified; Z87.442 Personal history of urinary calculi; Z88.0 Allergy status to penicillin; Z79.899 Other long term (current) drug therapy; F17.210 Nicotine dependence, cigarettes, uncomplicated; I51.7 Cardiomegaly; F41.8 Other specified anxiety disorders; G89.29 Other chronic pain; M54.9 Dorsalgia, unspecified
CPT/HCPCS: 36415; 71045; 80053; 80177; 81001; 82947; 83605; 83880; 84443; 84484; 85025; 86317; 86704; 86708; 86803; 87040; 87070; 87077; 87147; 87186; 87205; 87340; 87389; 93005; 93010; 93306; 94640; 94644; 94660; 96365; 96375; 99285-25; A9270; J0692; J1650; J2060; J2405; J2930

== ENCOUNTER 2020-09-18 02:00 | Emergency (ER) | payer OTHER ==
[~2020-09-18] VITALS: Ht 172.7 cm; Wt 102.1 kg
[2020-09-18 04:24] LABS: BASOPHILS ABSOLUTE AUTO 0.04 K/mm3 (0.00-0.23); BASOPHILS PERCENT AUTO 0 % (0-2); EOSINOPHILS PERCENT AUTO 0 % (0-6); Hematocrit 36.5 % (37.0-53.0); Hemoglobin 11.9 g/dL (13.5-17.5); IMMATURE GRAN ABSOLUTE AUTO 0.18 K/mm3 (0.00-0.10); IMMATURE GRAN PERCENT AUTO 1 % (0-1); LYMPHOCYTES PERCENT AUTO 8 % (21-46); MONOCYTES ABSOLUTE AUTO 1.31 K/mm3 (0.16-1.47); MONOCYTES PERCENT AUTO 7 % (4-13); Mean Corpuscular HGB 29.5 pg (26.0-34.0); Mean Corpuscular HGB Conc 32.6 g/dL (31.5-36.5); Mean Corpuscular Volume 91 fL (80-100); Mean Platelet Volume 9.3 fL (9.1-12.4); NEUTROPHILS ABSOLUTE AUTO 15.51 K/mm3 (1.96-9.15); NEUTROPHILS PERCENT AUTO 84 % (41-73); Platelet Count 483 K/mm3 (150-400); RDW Coefficient Variation 14.6 % (11.7-14.2); RDW Standard Deviation 49.2 fL (35.1-46.3); Red Blood Cell Count 4.03 M/mm3 (4.30-5.90); White Blood Cell Count 18.44 K/mm3 (4.00-11.30)
[2020-09-18 04:44] LABS: Alanine Aminotransfer (ALT/SGP 27 U/L (12-78); Albumin, Blood 2.9 g/dL (3.4-5.0); Albumin/Globulin Ratio 0.7 (0.8-1.8); Alk Phos 78 U/L (50-136); Anion Gap 7 mmol/L (6-16); Aspartate Aminotrans (AST/SGOT 9 U/L (12-37); Bilirubin, Total 0.4 mg/dL (0.1-1.0); Blood Urea Nitrogen 24 mg/dL (8-24); Bun/Creatinine Ratio 29.4 (12.0-20.0); CO2, Blood 22 mmol/L (21-32); Calcium, Blood 9.1 mg/dL (8.5-10.1); Chloride, Blood 112 mmol/L (98-108); Creatinine, Blood 0.82 mg/dL (0.60-1.20); Globulin, Blood 4.2 g/dL (2.2-4.0); Glomerular Filtration Rate >60 (60-); Glucose, Blood 146 mg/dL (70-99); Sodium, Blood 141 mmol/L (136-145); Total Protein, Blood 7.1 g/dL (6.4-8.2); Troponin I <0.015 ng/mL (0.000-0.040)
[2020-09-18 05:43] LABS: SARS-Cov-2 (COVID-19) PCR, MMC NEGATIVE (NEGATIVE)
[2020-09-18] MEDS ORDERED: ALBU90OI INH (05:54)
[2020-09-18] MEDS ORDERED: Zithromax250 MG PO (05:54)
[2020-09-18] MEDS ORDERED: Prednisone20 MG PO (05:54)
== END 2020-09-18 06:05 | disposition home or self-care (01) ==
LOC: ER 02:00
PROVIDERS: Emergency Medicine
DX: J44.1 Chronic obstructive pulmonary disease with (acute) exacerbation (principal); G40.909 Epilepsy, unspecified, not intractable, without status epilepticus; I10 Essential (primary) hypertension; E03.9 Hypothyroidism, unspecified; F17.210 Nicotine dependence, cigarettes, uncomplicated; Z88.0 Allergy status to penicillin; Z79.51 Long term (current) use of inhaled steroids; Z20.822 Contact with and (suspected) exposure to COVID-19; Z79.899 Other long term (current) drug therapy
CPT/HCPCS: 36415; 71045; 80053; 83605; 83880; 84484; 85025; 93005; 93010; 94644; 96365; 96375; 99285-25; A9270; J2930; J3475; U0004

== ENCOUNTER 2020-09-19 06:09 | Emergency (ER) | payer OTHER ==
[~2020-09-19] VITALS: Ht 172.7 cm; Wt 102.1 kg
[~2020-09-19 06:09] MED LIST changes: +Prednisone20 MG PO; +Zithromax250 MG PO
== END 2020-09-19 08:53 | disposition home or self-care (01) ==
LOC: ER 06:09
DX: H53.8 Other visual disturbances (principal); J44.9 Chronic obstructive pulmonary disease, unspecified; I10 Essential (primary) hypertension; E03.9 Hypothyroidism, unspecified; F17.210 Nicotine dependence, cigarettes, uncomplicated; Z88.0 Allergy status to penicillin; Z79.899 Other long term (current) drug therapy
CPT/HCPCS: 70450; 82947; 99284-25

== ENCOUNTER 2020-10-28 10:26 | Observation (INO) | payer OTHER ==
[~2020-10-28] VITALS: Ht 172.7 cm; Wt 102.5 kg
[2020-10-28 11:12] LABS: BASOPHILS ABSOLUTE AUTO 0.14 K/mm3 (0.00-0.23); BASOPHILS PERCENT AUTO 1 % (0-2); EOSINOPHILS ABSOLUTE AUTO 0.23 K/mm3 (0.00-0.68); EOSINOPHILS PERCENT AUTO 1 % (0-6); Hematocrit 40.7 % (37.0-53.0); Hemoglobin 13.2 g/dL (13.5-17.5); IMMATURE GRAN ABSOLUTE AUTO 0.12 K/mm3 (0.00-0.10); IMMATURE GRAN PERCENT AUTO 1 % (0-1); LYMPHOCYTES PERCENT AUTO 10 % (21-46); MONOCYTES ABSOLUTE AUTO 1.89 K/mm3 (0.16-1.47); MONOCYTES PERCENT AUTO 9 % (4-13); Mean Corpuscular HGB 29.3 pg (26.0-34.0); Mean Corpuscular HGB Conc 32.4 g/dL (31.5-36.5); Mean Corpuscular Volume 90 fL (80-100); Mean Platelet Volume 10.4 fL (9.1-12.4); NEUTROPHILS ABSOLUTE AUTO 17.53 K/mm3 (1.96-9.15); NEUTROPHILS PERCENT AUTO 79 % (41-73); Platelet Count 361 K/mm3 (150-400); RDW Coefficient Variation 14.6 % (11.7-14.2); RDW Standard Deviation 48.5 fL (35.1-46.3); White Blood Cell Count 22.11 K/mm3 (4.00-11.30)
[2020-10-28 11:18] LABS: Base Excess Venous 0.9 mmol/L; Bicarbonate Venous 25.1 mmol/L (24.0-30.0); PCO2 Venous 40.5 mmHg (38-42); PO2 Venous 126 mmHg (38-42); pH Blood Venous 7.41 (7.34-7.37)
[2020-10-28 11:37] LABS: Alanine Aminotransfer (ALT/SGP 19 U/L (12-78); Albumin, Blood 3.5 g/dL (3.4-5.0); Albumin/Globulin Ratio 0.9 (0.8-1.8); Alk Phos 87 U/L (50-136); Anion Gap 4 mmol/L (6-16); Aspartate Aminotrans (AST/SGOT 14 U/L (12-37); Bilirubin, Total 0.2 mg/dL (0.1-1.0); Blood Urea Nitrogen 15 mg/dL (8-24); Bun/Creatinine Ratio 16.8 (12.0-20.0); CO2, Blood 26 mmol/L (21-32); Calcium, Blood 9.4 mg/dL (8.5-10.1); Chloride, Blood 110 mmol/L (98-108); Creatinine, Blood 0.89 mg/dL (0.60-1.20); Ethanol (Alcohol), Blood, Med <3 mg/dL; Free Thyroxine 0.84 ng/dL (0.70-1.60); Globulin, Blood 3.8 g/dL (2.2-4.0); Glomerular Filtration Rate >60 (60-); Glucose, Blood 113 mg/dL (70-99); Potassium, Blood 4.4 mmol/L (3.5-5.5); Salicylate 3.6 mg/dL (2.8-20.0); Sodium, Blood 140 mmol/L (136-145); Thyroid Stimulating Hormone 0.505 uIU/mL (0.360-4.800); Total Protein, Blood 7.3 g/dL (6.4-8.2)
[2020-10-28 11:42] LABS: Acetaminophen, Random <2.0 ug/mL (10.0-30.0)
[2020-10-28 12:28] LABS: Source, Urine Clean Catch
[2020-10-28 12:31] LABS: Appearance, Urine Clear (Clear); Bilirubin, Urine Neg (Neg); Blood, Urine 1+ (Neg); Color, Urine Yellow (P-Yellow); Glucose Qualitative, Urine Neg (Neg); Ketones, Urine Neg (Neg); Leukocyte Esterase, Urine Neg (Neg); Nitrite, Urine Neg (Neg); Protein, Urine Neg (Neg); Specific Gravity, Urine 1.005 (1.003-1.022); Urobilinogen, Urine NORM (Normal)
[2020-10-28 12:46] LABS: Bacteria Not Seen /hpf; Red Blood Cells, Urine 0-2 /hpf (0-2); Squamous Epithelial Cells Rare /hpf (Few); White Blood Cells, Urine 0-2 /hpf (0-5)
[2020-10-28 12:55] LABS: U Amphetamine Screen Not Detected; U Barbituate Screen Not Detected; U Benzodiazapine Screen Not Detected; U Buprenorphine Screen Not Detected; U Cannabinoids Screen Not Detected; U Cocaine Screen Not Detected; U Methadone Screen Not Detected; U Methamphetamine Screen Not Detected; U Opiates Screen Not Detected; U Oxycodone Screen Not Detected; U Phencyclidine Screen Not Detected; U Propoxyphene Screen Not Detected
--- NOTE | 2020-10-28 17:55 | NUR ---
SHIFT SUMMARY PT ADMITTED TO PCU4 THIS AFTERNOON ABOUT 1600. PT HAS BEEN VERY DROWSY/LETHARGIC, BUT AWAKENS TO VERBAL STIMULI AND IS ORIENTED TO SELF AND SURROUNDINGS. HE HAS BEEN HAVING SOME CONFUSION AND HALLUCINATIONS HOWEVER; BED ALARM HAS BEEN IN USE. PT WAS NOT ABLE TO PROVIDE HISTORY OR CONFRIM MEDICATIONS; THIS WAS UPDATED PER FAMILY TO THE BEST OF THEIR ABILITY. PT RESTING IN BED AT THIS TIME.
--- NOTE | 2020-10-28 19:25 | NUR ---
ASSUMED CARE, BED ALARM GOING OFF, PATIENT GETTING OUT OF BED TO USE BR. DICONNECTED FROM BP AND BIOX, AMB TO BR W/O ASSIST. SEE [facility] FOR FULL SHIFT ASSESSMENT.
--- NOTE | 2020-10-28 20:18 | NUR ---
PATIENT REFUSING CARE AND MAKING CALLS TO LEAVE AMA. DR LOPEZ NOYIFIED, PATIENT STABLE ON FEET, ALERT ORIENTED AND VSS. RISKS AND CONCERNS CONVEYED TO PATIET. SIGNED AMA FORM AND SAID HE'LL CALL A CAB.
--- NOTE | 2020-10-28 20:47 | NUR ---
PATIENT LEFT ROOM WITHOUT NOTIFYING THIS RN WHILE I WAS ON THE PHONE WITH DAUGHTER, DAUGHTER AGREED TO COME GET HIM WITH RESEVATIONS.
== END 2020-10-28 20:47 | disposition left against medical advice (07) ==
LOC: ER 10:26 → PCU 10:27
PROVIDERS: Emergency Medicine; ADMIT Family Medicine
DX: T65.91XA Toxic effect of unspecified substance, accidental (unintentional), initial encounter (principal); G93.41 Metabolic encephalopathy; G89.29 Other chronic pain; I10 Essential (primary) hypertension; E03.9 Hypothyroidism, unspecified; G40.909 Epilepsy, unspecified, not intractable, without status epilepticus; J43.9 Emphysema, unspecified; F17.210 Nicotine dependence, cigarettes, uncomplicated; Z88.0 Allergy status to penicillin; Z79.899 Other long term (current) drug therapy
CPT/HCPCS: 36415; 51701; 70450; 71045; 80053; 81001; 82803; 82947; 83605; 84439; 84443; 85025; 93005; 93010; 94762; 96372; G0378; G0480; J0456; J0696; J1650; J1953; J2310; J7050